=== PATIENT | male | born 1970 | race Caucasian/White ===

== ENCOUNTER 2021-05-24 23:26 | Emergency (ER) | payer MEDICAID ==
[~2021-05-24] VITALS: Ht 182.9 cm; Wt 119.7 kg
[2021-05-24 23:31] VITALS: BP 146/90
[2021-05-25] MEDS ORDERED: HYD1C TP (00:56)
[2021-05-25] MEDS ORDERED: ACETAMINOPHEN EXTRA STRENGTH 500 MG TAB PO ONE (01:10)
== END 2021-05-25 01:22 | disposition home or self-care (01) ==
LOC: MED 23:26
DX: S50.361A Insect bite (nonvenomous) of right elbow, initial encounter (principal); W57.XXXA Bitten or stung by nonvenomous insect and other nonvenomous arthropods, initial encounter; Y93.89 Activity, other specified; Y92.89 Other specified places as the place of occurrence of the external cause; Y99.8 Other external cause status
CPT/HCPCS: 90471; 90715; 99283

== ENCOUNTER 2022-01-18 13:48 | Emergency (ER) | payer MEDICAID ==
[~2022-01-18] VITALS: Ht 175.3 cm; Wt 129.3 kg
[~2022-01-18 13:48] MED LIST: HYD1C TP
[2022-01-18 13:55] VITALS: BP 161/98
--- NOTE | 2022-01-18 14:13 | NUR ---
DR SANDY AT BEDSIDE.
[2022-01-18] MEDS ORDERED: FAMO-92 PO (14:43)
[2022-01-18 14:55] VITALS: BP 161/98
--- NOTE | 2022-01-18 14:55 | NUR ---
51 y/o male presents to ed with c/o emesis with coughing for 1 week with throat discomfort and burning. denies nausea, vomiting, diarrhea. skin is pink/warm/dry. a&o x4 with even and steady gait. lungs clear bl, heart rate even and regular. pt denies dysuria, hematuria, urinary frequency or retention, or anyone sick in the household with the same symptoms. pt denies any fever, cp, sob at this time. pt states pain is 7/10 at this time. vss. patient positioned for comfort. hob elevated. bed down. ermd made aware of pt. pmh: denies nka
--- NOTE | 2022-01-18 14:57 | NUR ---
Patient discharged with v/s stable. Written and verbal after care instructions given and explained. Patient alert, oriented and verbalized understanding of instructions. Ambulatory with steady gait. All questions addressed prior to discharge. ID band removed. Patient advised to follow up with PMD. Rx of famotidine (sent) given. Patient educated on indication of medication including possible reaction and side effects. Opportunity to ask questions provided and answered.
== END 2022-01-18 14:55 | disposition home or self-care (01) ==
LOC: MED 13:48
DX: R04.2 Hemoptysis (principal); R10.13 Epigastric pain; R05.9 Cough, unspecified; Z79.899 Other long term (current) drug therapy
CPT/HCPCS: 71045; 99283; Q0092

== ENCOUNTER 2024-04-24 08:20 | Emergency (ER) | payer MEDICAID ==
[~2024-04-24] VITALS: Ht 182.9 cm; Wt 101.6 kg
[~2024-04-24 08:20] MED LIST changes: +FAMO-92 PO
[2024-04-24 08:24] VITALS: BP 152/70; PULSE 68; RESP 18; TEMP 98.3; O2SAT 99
[2024-04-24 08:50] VITALS: BP 143/80; PULSE 63; RESP 16; TEMP 98.3; O2SAT 99
[2024-04-24] MEDS ORDERED: HYD2.5O TP (09:02)
[2024-04-24] MEDS ORDERED: IBUP-2218 PO (09:02)
[2024-04-24] MEDS: KETOROLAC 30 MG/ML VIAL IM ONE (09:12)
== END 2024-04-24 09:25 | disposition home or self-care (01) ==
LOC: MED 08:20
DX: S81.832A Puncture wound without foreign body, left lower leg, initial encounter (principal); Z79.899 Other long term (current) drug therapy; W57.XXXA Bitten or stung by nonvenomous insect and other nonvenomous arthropods, initial encounter; Y93.89 Activity, other specified; Y92.89 Other specified places as the place of occurrence of the external cause; Y99.8 Other external cause status
CPT/HCPCS: 96372; 99283; J1885